=== PATIENT | male | born 1990 | race Native Hawaiian/Other Pacific Islander ===

== ENCOUNTER → 2016-10-30 | Outpatient (CLI) | payer OTHER ==
[2016-10-30 09:23] LABS: Basophils # (A) 0.1 k/uL (0-0.2); Basophils % (A) 1 %; CH 32.2; Eosinophils # (A) 0.2 k/uL (0-0.7); Eosinophils % (A) 2 %; HCT 52.8 % (39.0-53.0); HDW 3.07; HGB 18.3 gm/dL (13.0-17.5); Luc # (Auto) 0.17; Luc % (Auto) 2; Lymphocytes # (A) 3.2 k/uL (1.0-4.8); Lymphocytes % (A) 31 %; MCH 31.1 pg (25.0-35.0); MCHC 34.6 g/dL (31.0-37.0); MCV 89.9 fL (80.0-100.0); Mean Platelet Volume 7.9; Monocytes # (A) 0.6 k/uL (0-1.0); Monocytes % (A) 6 %; Neutrophils # (A) 6.2 k/uL (1.3-7.7); Neutrophils % (A) 59 %; RBC 5.88 m/uL (4.30-5.90); WBC 10.5 k/uL (3.8-10.6); WBC (Perox) 10.59
[2016-10-30 09:59] LABS: Anion Gap 12 mmol/L; Blood Urea Nitrogen 14 mg/dL (9-20); Calcium 10.1 mg/dL (8.4-10.2); Carbon Dioxide 27 mmol/L (22-30); Chloride 105 mmol/L (98-107); Glucose 91 mg/dL (74-99); Non-African American GFR(MDRD) >60 (>60 ml/min/1.73 sqM); Sodium 144 mmol/L (137-145)
== END | disposition home or self-care (01) ==
LOC: LABPAT 08:12
PROVIDERS: ATTEND Urology
DX: Z01.812 Encounter for preprocedural laboratory examination (principal); N47.1 Phimosis
CPT/HCPCS: 80048; 85025

== ENCOUNTER 2016-11-05 06:23 | Day surgery (SDC) | payer OTHER ==
[2016-11-02 16:48] VITALS: BMI 31.0
[~2016-11-05 06:23] MED LIST: DEXAMETHASONE SOD PHOSPHATE 10 MG/ML 1 ML VIAL IV ONE; HYDROmorphone 1 MG/ML 1 ML SYRINGE IVP PRN; LACTATED RINGERS 1,000 ML IV SCH; MIDAZOLAM 2 MG/2 ML VIAL IV PRN; ONDANSETRON 4 MG/2 ML VIAL IVP ONE; ceFAZolin 2 GM in SODIUM CHLORIDE 0.9% 100 ML IVPB ONE
[2016-11-05] MEDS ORDERED: LIDOCAINE 1% 20 ML VIAL (10MG/ML) FOR IV START INTRADERMA ONE (06:50)
[2016-11-05] MEDS ORDERED: LIDOCAINE 2% (PF) 20 MG/ML 10ML SQ ONE (07:36)
[2016-11-05] MEDS ORDERED: MIDAZOLAM 2 MG/2 ML VIAL ONE (07:36)
[2016-11-05] MEDS ORDERED: PROPOFOL 10 MG/ML 20 ML VIAL IV ONE (07:36)
[2016-11-05] MEDS ORDERED: fentaNYL (PF) 50 MCG/ML 2 ML AMP ONE (07:36)
[2016-11-05] MEDS ORDERED: BUPIVACAINE (PF) 0.5% 30 ML VIAL SQ ONE (07:36)
[2016-11-05] MEDS ORDERED: LIDOCAINE 1% INJ 10MG/ML (20 ML MDV) ONE (07:36)
[2016-11-05] MEDS ORDERED: LACTATED RINGERS 1,000 ML IV ONE (08:22)
[2016-11-05 09:07] VITALS: RESP 18; TEMP 97.4
--- NOTE | 2016-11-05 09:18 | P.OP ---
Date of Procedure: 11/05/16 Preoperative Diagnosis: Redundant Prepuce Postoperative Diagnosis: Same Procedure(s) Performed: Circumcision Anesthesia: NATALIA Surgeon: Darin Medina Estimated Blood Loss (ml): 50 IV fluids (ml): 1,000 Pathology: other (Preputial skin) Condition: stable Disposition: PACU Indications for Procedure: He is a 26 year old male who desires a circumcision and comes for this reason. Operative Findings: Redundant prepuce. Frenular tethering. Description of Procedure: The patient was taken to the operating room and placed in the supine position. The external genitalia was prepped and draped sterilely. A 50-50 mixture of 2% lidocaine and 0.25% Marcaine was injected circumferentially at the penile base for a penile block. The scalpel was used to incise the frenular attachments, which were prominent. The resulting incision was then closed longitudinally using 4-0 chromic suture in a running fashion. Once the frenular attachment had been taken down, a circumferential skin incision was made 1 cm proximal to the glans camp. Dorsal and ventral incisions were then made in the midline, down to a point that nicely approximated the subcoronal skin edge. The redundant preputial skin was excised. Considerable oozing was noted, and subcutaneous bleeders were controlled with electrocautery. Excellent hemostasis was attained. The skin edges were reapproximated using 3-0 chromic suture in simple interrupted fashion dorsally, and running fashion ventrally. An Adaptic dressing was placed over the incision, and the penis was then snugly wrapped using a 2 inch Janey with care taken not to constrict the penis in any way. The patient tolerated the procedure well and was taken to the recovery room in stable condition. He will be discharged home postoperatively.
[2016-11-05] MEDS ORDERED: HYDROcodone/APAP 5-325MG 1 EACH TAB PO ONE (10:00)
[2016-11-05 10:27] VITALS: BP 137/88; PULSE 75
== END 2016-11-05 10:54 | disposition home or self-care (01) ==
LOC: OR 06:23
PROVIDERS: ATTEND Urology
DX: N47.1 Phimosis (principal); N48.1 Balanitis; Z87.891 Personal history of nicotine dependence; Z79.899 Other long term (current) drug therapy
CPT/HCPCS: 54161; 88304; J2250; J1100; J2001 ×2; J2405; J3010; J2704

== ENCOUNTER → 2019-04-27 | Outpatient (CLI) | payer OTHER ==
--- NOTE | 2019-04-27 16:22 | XR ---
EXAMINATION TYPE: XR chest 2V DATE OF EXAM: 04/27/2019 COMPARISON: NONE HISTORY: R 76.11 TECHNIQUE: Frontal and lateral views of the chest are obtained. FINDINGS: There is no focal air space opacity, pleural effusion, or pneumothorax seen. The cardiac silhouette size is within normal limits. The osseous structures are intact. Surgical clips present in the right upper quadrant. IMPRESSION: No acute cardiopulmonary process.
== END | disposition home or self-care (01) ==
LOC: RADXRMAIN 15:46
PROVIDERS: ATTEND Internal Medicine
DX: R76.11 Nonspecific reaction to tuberculin skin test without active tuberculosis (principal)
CPT/HCPCS: 71046

== ENCOUNTER 2020-08-16 11:44 | Emergency (ER) | payer OTHER ==
[2020-08-16 11:50] VITALS: TEMP 98.8
[2020-08-16] MEDS ORDERED: IPRATROPIUM-ALBUTEROL 3 ML NEB INHALATION STA (12:12)
[2020-08-16 12:51] VITALS: PULSE 78
--- NOTE | 2020-08-16 12:54 | XR ---
EXAMINATION TYPE: XR chest 2V DATE OF EXAM: 08/16/2020 COMPARISON: 04/27/2019 TECHNIQUE: PA and lateral views submitted. HISTORY: Difficulty breathing and cough FINDINGS: The lungs are clear and there is no pneumothorax, pleural effusion, or focal pneumonia. No overt fa ilure. Heart size normal. Surgical clips involving the abdomen. IMPRESSION: 1. No acute process.
[2020-08-16] MEDS ORDERED: predniSONE 50 MG TAB PO STA (13:23)
--- NOTE | 2020-08-16 13:23 | ED ---
General Adult HPI - General Chief complaint: ENT Stated complaint: Covid symptons/sob Time Seen by Provider: 08/16/20 11:50 Source: patient, RN notes reviewed, old records reviewed Mode of arrival: ambulatory Limitations: no limitations - History of Present Illness Initial comments: This is a 30-year-old male who presents emergency department stating that he has been having a cough for the last 3 or 4 days. Patient states his been afebrile and he has been tested for COVID but has not yet got results. Patient states she's not short of breath or having any difficulty breathing. Patient denies any chest pain or palpitations. Patient denies any nausea vomiting diarrhea. Patient denies any loss of taste. Patient states she does have a history of asthma as a kid but he hasn't had for years. - Related Data Home Medications Medication Instructions Recorded Confirmed Potassium Gluconate 297 mg PO DAILY PRN 08/16/20 08/16/20 Previous Rx's Medication Instructions Recorded Albuterol Inhaler [Ventolin Hfa 2 puff INHALATION RT-QID #2 puff 08/16/20 Inhaler] Azithromycin [Zithromax Tri-Rhys] 500 mg PO DAILY #3 tab 08/16/20 predniSONE [Deltasone] 40 mg PO DAILY #8 tab 08/16/20 Allergies Allergy/AdvReac Type Severity Reaction Status Date / Time No Known Allergies Allergy Verified 08/16/20 12:26 Review of Systems ROS Statement: Those systems with pertinent positive or pertinent negative responses have been documented in the HPI. ROS Other: All systems not noted in ROS Statement are negative. Past Medical History Past Medical History: No Reported History History of Any Multi-Drug Resistant Organisms: None Reported Past Surgical History: Cholecystectomy Past Psychological History: Anxiety, Depression Smoking Status: Former smoker Past Alcohol Use History: None Reported Past Drug Use History: None Reported General Exam - General Exam Comments Initial Comments: GENERAL: Patient is well-developed and well-nourished. Patient is nontoxic and well- hydrated and is in no acute distress. ENT: Neck is soft and supple. No significant lymphadenopathy is noted. Oropharynx is clear. Moist mucous membranes. Neck has full range of motion without eliciting any pain. EYES: The sclera were anicteric and conjunctiva were pink and moist. Extraocular movements were intact and pupils were equal round and reactive to light. Eyelids were unremarkable. PULMONARY: Patient is wheezing diffusely CARDIOVASCULAR: There is a regular rate and rhythm without any murmurs gallops or rubs. ABDOMEN: Soft and nontender with normal bowel sounds. SKIN: Skin is clear with no lesions or rashes and otherwise unremarkable. NEUROLOGIC: Patient is alert and oriented x3. Cranial nerves II through XII are grossly intact. Motor and sensory are also intact. Normal speech, volume and content. Symmetrical smile. MUSCULOSKELETAL: Normal extremities with adequate strength and full range of motion. LYMPHATICS: No significant lymphadenopathy is noted PSYCHIATRIC: Normal psychiatric evaluation. Limitations: no limitations Course Vital Signs 08/16/20 08/16/20 08/16/20 11:47 12:48 13:03 Temperature 98.8 F Pulse Rate 106 H 78 78 Respiratory 16 Rate Blood Pressure 161/117 O2 Sat by Pulse 97 Oximetry Medical Decision Making - Medical Decision Making Chest x-ray shows no acute abnormality. Patient received a breathing treatment and steroids in the emergency department he was doing much better after the treatment. Disposition Clinical Impression: Bronchitis with bronchospasm Disposition: HOME SELF-CARE Condition: Good Prescriptions: predniSONE [Deltasone] 40 mg PO DAILY #8 tab Albuterol Inhaler [Ventolin Hfa Inhaler] 2 puff INHALATION RT-QID #2 puff Azithromycin [Zithromax Tri-Rhys] 500 mg PO DAILY #3 tab Is patient prescribed a controlled substance at d/c from ED?: No Referrals: None,Stated [Primary Care Provider] - 1-2 days Time of Disposition: 13:23
[2020-08-16 13:45] VITALS: RESP 18
[2020-08-16 13:49] VITALS: BP 145/98
== END 2020-08-16 13:49 | disposition home or self-care (01) ==
LOC: EC 11:44
DX: J20.9 Acute bronchitis, unspecified (principal); Z87.891 Personal history of nicotine dependence
CPT/HCPCS: 94640; 71046; 99284; J7512